=== PATIENT | female | born 1945 | race Caucasian/White ===

== ENCOUNTER 2017-09-05 09:32 | Inpatient (IN) | payer MEDICARE, OTHER ==
[~2017-09-05] VITALS: Ht 165.1 cm; Wt 59.4 kg
[2017-09-05] MEDS ORDERED: LOSA100T14 PO (09:41)
[2017-09-05] MEDS ORDERED: ONDANSETRON HCL 4MG/2ML VIAL IV STA (10:17)
[2017-09-05] MEDS ORDERED: SODIUM CHLORIDE 0.9% 1,000 ML IV ONE (10:17)
[2017-09-05 10:52] LABS: INR 1.1; PROTHROMBIN TIME 11.4 sec (9.4-11.6)
[2017-09-05 10:53] LABS: BASOPHILS % 0.4 % (0.0-2.0); EOSINOPHILS % 0.3 % (0.0-5.0); HEMATOCRIT. 39.9 % (36.0-48.0); HEMOGLOBIN. 13.6 g/dL (12.0-16.0); LYMPHOCYTES % 11.3 % (20.0-50.0); MEAN CORPUSCULAR HEMOGLOBIN 31.3 pg (28.0-32.0); MEAN CORPUSCULAR VOLUME 91.8 fL (81.0-99.0); MEAN PLATELET VOLUME 7.5 fl (7.4-10.4); MONOCYTES % 5.3 % (2.0-8.0); NEUTROPHILS % 82.7 % (40.0-76.0); PLATELET 206 x1000/uL (130-400); RED BLOOD CELL COUNT 4.34 mill/uL (4.2-5.4); RED CELL DISTRIBUTION WIDTH 14.3 % (11.6-14.6)
[2017-09-05 11:02] LABS: CARBON DIOXIDE 28 mEq/L (21-32); CHLORIDE 102 mEq/L (98-107); CREATINE KINASE 57 IU/L (26-192); ETHANOL BLOOD < 10 mg/dL; TROPONIN I 0.15 ng/mL (0.00-0.04)
[2017-09-05] MEDS ORDERED: ASPIRIN 325MG EC TABLET PO ONE (11:30)
[2017-09-05 11:45] LABS: CLARITY URINE CLOUDY (CLEAR); COLOR URINE DARK YELLOW (YELLOW); KETONES URINE TRACE (NEGATIVE); LEUKOCYTE ESTERASE URINE 1+ (NEGATIVE); NITRITE URINE NEGATIVE (NEGATIVE); OCCULT BLOOD URINE NEGATIVE (NEGATIVE); PROTEIN URINE TRACE (NEGATIVE); SPECIFIC GRAVITY URINE 1.019 (1.005-1.030)
[2017-09-05] MEDS: SODIUM CHLORIDE 0.9% 1,000 ML IV SCH ×2 (12:14→20:59)
[2017-09-05] MEDS ORDERED: CLONIDINE 0.1MG TABLET PO PRN (12:15)
[2017-09-05] MEDS ORDERED: DIPHENHYDRAMINE 50MG/ML VIAL IV PRN (12:15)
[2017-09-05] MEDS ORDERED: TRAMADOL 50MG TABLET PO PRN (12:15)
[2017-09-05] MEDS ORDERED: NITROGLYCERIN 0.4MG TABLET SL SL PRN (12:15)
[2017-09-05] MEDS ORDERED: IPRATROPIUM/ALBUTEROL 0.5-3(2.5)MG/3ML NEB INH PRN (12:15)
[2017-09-05] MEDS ORDERED: LORAZEPAM 0.5MG TABLET PO PRN (12:15)
[2017-09-05] MEDS ORDERED: MAGNESIUM/ALUMINUM HYDROXIDE/SIMETHICONE 30ML UDC PO PRN (12:15)
[2017-09-05] MEDS ORDERED: NA PHOS,M-B/NA PHOS,DI-BA ENEMA 118ML PR PRN (12:15)
[2017-09-05] MEDS ORDERED: DOCUSATE SODIUM 100MG CAPSULE PO PRN (12:15)
[2017-09-05] MEDS ORDERED: GUAIFENESIN 200MG/10ML SUGAR FREE UDC PO PRN (12:15)
[2017-09-05] MEDS ORDERED: MORPHINE SULFATE 4 MG/ML CPJ (NOT FOR IM USE) IV PRN (12:15)
[2017-09-05] MEDS ORDERED: ACETAMINOPHEN 325MG TABLET PO PRN (12:15)
[2017-09-05] MEDS ORDERED: ONDANSETRON HCL 4MG/2ML VIAL IV PRN (12:15)
[2017-09-05 12:26] LABS: *AMPHETAMINES SCREEN URINE NEGATIVE (NEGATIVE); *BARBITURATES SCREEN URINE NEGATIVE (NEGATIVE); *BENZODIAZEPINES SCREEN URINE NEGATIVE (NEGATIVE); *COCAINE SCREEN URINE NEGATIVE (NEGATIVE); CANNABINOID URINE SCREEN NEGATIVE (NEGATIVE); METHADONE URINE SCREEN NEGATIVE (NEGATIVE); OPIATES URINE SCREEN NEGATIVE (NEGATIVE); PHENCYCLIDINE URINE SCREEN NEGATIVE (NEGATIVE)
[2017-09-05] MEDS ORDERED: POTASSIUM CHLORIDE INJ 20 MEQ in SODIUM CHLORIDE 0.9% 100 ML IV NR (13:00)
[2017-09-05] MEDS ORDERED: ENOXAPARIN 40MG/0.4ML SYR SUBCUT NR (13:00)
[2017-09-05] MEDS: SUCRALFATE 1 G/10 ML UDC PO SCH ×2 (14:39→20:58)
[2017-09-05 14:40] LABS: CREATINE KINASE MB FRACTION 1.6 ng/mL (0.5-3.6); TROPONIN I 0.14 ng/mL (0.00-0.04)
[2017-09-05] MEDS ORDERED: IOHEXOL-350 100 ML BOTTLE ONE (17:14)
[2017-09-05 20:00] VITALS: BP 106/57
[2017-09-05] MEDS ORDERED: TRAZ-132 PO (20:23)
[2017-09-05] MEDS: FAMOTIDINE 20MG/2ML VIAL IV SCH (20:58)
[2017-09-05] MEDS ORDERED: ZOLPIDEM TARTRATE 5MG TABLET PO PRN (21:00)
[2017-09-05] MEDS: TRAZODONE HCL 100MG TABLET PO SCH ×2 (21:00→22:35)
[2017-09-05] MEDS ORDERED: LEVOFLOXACIN 500MG PREMIX 100 ML IV SCH (21:00)
[2017-09-05 22:00] VITALS: BP 104/46
[2017-09-05 23:50] LABS: TROPONIN I 0.1 ng/mL (0.00-0.04)
[2017-09-05 23:51] LABS: CREATINE KINASE MB FRACTION 1.7 ng/mL (0.5-3.6)
[2017-09-06] VITALS (12 sets, daily range): BP systolic 104–153; BP diastolic 53–78
[2017-09-06] MEDS: SUCRALFATE 1 G/10 ML UDC PO SCH ×4 (05:55→20:56)
[2017-09-06 07:02] LABS: BASOPHILS % 0.6 % (0.0-2.0); EOSINOPHILS % 1.5 % (0.0-5.0); HEMATOCRIT. 35.9 % (36.0-48.0); HEMOGLOBIN. 12.2 g/dL (12.0-16.0); LYMPHOCYTES % 27.8 % (20.0-50.0); MEAN CORPUSCULAR HEMOGLOBIN 30.8 pg (28.0-32.0); MEAN CORPUSCULAR VOLUME 90.9 fL (81.0-99.0); MEAN PLATELET VOLUME 7.9 fl (7.4-10.4); NEUTROPHILS % 62.1 % (40.0-76.0); PLATELET 194 x1000/uL (130-400); RED BLOOD CELL COUNT 3.95 mill/uL (4.2-5.4); RED CELL DISTRIBUTION WIDTH 14.1 % (11.6-14.6)
[2017-09-06 08:19] LABS: CARBON DIOXIDE 26 mEq/L (21-32); CHLORIDE 108 mEq/L (98-107)
[2017-09-06] MEDS: ASPIRIN 325MG EC TABLET PO SCH (08:55)
[2017-09-06] MEDS: SODIUM CHLORIDE 0.9% 1,000 ML IV SCH ×2 (08:58→18:14)
[2017-09-06] MEDS: ENOXAPARIN 40MG/0.4ML SYR SUBCUT SCH (13:55)
[2017-09-06] MEDS: TRAZODONE HCL 100MG TABLET PO SCH (20:56)
[2017-09-06] MEDS: FAMOTIDINE 20MG/2ML VIAL IV SCH (20:56)
[2017-09-06] MEDS ORDERED: LEVOFLOXACIN 250MG PREMIX 50 ML IV SCH (21:00)
[2017-09-07] VITALS (8 sets, daily range): BP systolic 126–156; BP diastolic 65–80
[2017-09-07] MEDS: SODIUM CHLORIDE 0.9% 1,000 ML IV SCH (04:14)
[2017-09-07] MEDS: SUCRALFATE 1 G/10 ML UDC PO SCH ×2 (05:27→11:46)
[2017-09-07] MEDS: ASPIRIN 325MG EC TABLET PO SCH (08:13)
[2017-09-07] MEDS: ENOXAPARIN 40MG/0.4ML SYR SUBCUT SCH (12:03)
== END 2017-09-07 13:54 | disposition home or self-care (01) | DRG 690 ==
LOC: ER 09:57 → SUPCPDRO 12:14 → 3WST 15:54 → EDBEDREQSVC 15:56 → ENRESERV 16:30
PROVIDERS: ADMIT Internal Medicine; ATTEND Internal Medicine
DX: N39.0 Urinary tract infection, site not specified (principal); E44.1 Mild protein-calorie malnutrition; J44.9 Chronic obstructive pulmonary disease, unspecified; E87.5 Hyperkalemia; E87.6 Hypokalemia; I10 Essential (primary) hypertension; E86.0 Dehydration; K52.9 Noninfective gastroenteritis and colitis, unspecified; Z79.82 Long term (current) use of aspirin; Z79.899 Other long term (current) drug therapy; Z86.011 Personal history of benign neoplasm of the brain; Z90.49 Acquired absence of other specified parts of digestive tract; Z68.21 Body mass index [BMI] 21.0-21.9, adult
CPT/HCPCS: 36415; 71045; 71275; 80053; 80061; 80305; 81001; 82550; 82553; 83036; 83605; 84443; 84484; 85025; 85379; 85610; 87077; 87086; 87186; 93005; 93306; 93970; 96374; 99285; G0482; J1650; J1956; J2405; J3480; J3490; J7030; J7050; Q9967